=== PATIENT | female | born 1940 | race Caucasian/White ===

== ENCOUNTER → 2017-01-18 | Outpatient (CLI) | payer OTHER, BC ==
[~2017-01-18] MED LIST: CHOL100027 PO; CYAN100048; DENOINJ; DOCU-94 PO; EVER10TA PO; EXM25C PO; LANS15CA27 PO; METO25TA3 PO
== END | disposition home or self-care (01) ==
LOC: C.PATHSPEC 11:25
PROVIDERS: ATTEND Dentist Oral and Maxillofacial Pathology
DX: M87.9 Osteonecrosis, unspecified (principal)

== ENCOUNTER → 2017-04-19 | Outpatient (CLI) | payer OTHER, BC | END | disposition home or self-care (01) | LOC: C.PATH 15:05 | PROVIDERS: ATTEND Dentist Oral and Maxillofacial Pathology | DX: M87.88 Other osteonecrosis, other site (principal) ==

== ENCOUNTER → 2017-05-17 | Outpatient (CLI) | payer OTHER, BC ==
[~2017-05-17] MED LIST changes: +OPTIRAY 320 IV PRN
--- NOTE | 2017-05-17 14:20 | DIAGNOSTIC IMAGING REPORT ---
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 COMPARISON: PET/CT dated 08/24/2014 FINDINGS: Stable bony metastatic change. Lungs are clear. No significant hilar or mediastinal adenopathy . No significant pulmonary nodularity. IMPRESSION: 1. Stable sclerotic changes of the osseous structures suggesting old metastatic change. 2. No acute or interval process. Electronically signed by: Malachi Smith M.D. 05/17/2017 2:19 PM Dictated Date/Time: 05/17/2017 2:08 PM
--- NOTE | 2017-05-17 14:20 | DIAGNOSTIC IMAGING REPORT ---
ABDOMEN AND PELVIS CT WITH ORAL CONTRAST CT DOSE: 787.00 mGy.cm HISTORY: malignant neoplasm of female breast TECHNIQUE: Multiaxial CT images of the abdomen and pelvis were performed following the use of oral contrast. COMPARISON STUDY: PET CT 08/24/2014. FINDINGS: The lung bases are clear. No change in the scattered sclerotic lesions within the spine, sacrum, pelvis, proximal right femur consistent with metastatic foci. There appear to be a few scattered hypodense lesions within the liver which are new from the prior study. Dominant lesion within the right hepatic lobe measures 2.6 cm. The unenhanced spleen, adrenal glands, pancreas, and right kidney are unremarkable. Mild bilateral perinephric edema. Left peripelvic renal cysts are again noted. Multiple large calcified and noncalcified uterine fibroids are unchanged. No retroperitoneal lymphadenopathy. Cholelithiasis. Bladder is compressed by the large uterine calcified fibroid. Colonic diverticulosis. No bowel wall thickening or obstruction. Prior right hemicolectomy. IMPRESSION: 1. Interval development of a few hypodense lesions within the liver. These are technically indeterminate on this noncontrast study but are worrisome for metastatic foci. Follow-up contrast-enhanced liver MRI is recommended for confirmation. 2. No change in the scattered osteoblastic metastatic lesions. Electronically signed by: Thiago Ann M.D. 05/17/2017 2:19 PM Dictated Date/Time: 05/17/2017 2:09 PM
--- NOTE | 2017-05-17 17:06 | DIAGNOSTIC IMAGING REPORT ---
WHOLE-BODY NUCLEAR BONE SCAN CLINICAL HISTORY: Breast cancer. COMPARISON STUDY: CT scan of the chest, abdomen, and pelvis dated 05/17/2017. PET/CT dated 08/24/2014. TECHNIQUE: Three hours following the IV administration of 26.2 mCi of technetium 99m MDP, whole body nuclear bone scan was performed in the anterior and posterior projections. FINDINGS: Heterogeneous activity is identified in the sacrum. This is consistent with metastatic disease when correlated with the patient's recent abdominal CT. A lesion is also identified in the body of L1 comment likely within the left posterior lateral sixth rib. Typically degenerative uptake is identified in the shoulders, knees, risks, and feet. Intense activity along the right aspect of the thoracic spine corresponds to large marginal osteophytes when correlated with the recent chest CT. There is expected excreted activity within the renal collecting system. Intense activity within the pelvis some eccentric to the right may correspond to a large calcified fibroid. Intense nonspecific activity is also identified in the mandible. IMPRESSION: 1. There is abnormal activity identified within L1, the sacrum, and the right posterior lateral sixth rib typical in appearance for osseous metastatic disease. Sclerotic lesions are identified at these sites on the recent CT scans. 2. There is intense nonspecific activity identified in the mandible. This could represent metastatic disease, Paget's disease of bone, fibrous dysplasia, or could be related to periodontal disease. Clinical correlation will be essential. 3. Intense activity in the pelvis may be related to a large calcified fibroid seen by CT. 4. Foci of typically degenerative activity as above. Electronically signed by: Chidi Acosta M.D. 05/17/2017 5:04 PM Dictated Date/Time: 05/17/2017 4:57 PM
== END | disposition home or self-care (01) ==
LOC: C.CTS 11:56
PROVIDERS: ATTEND Internal Medicine Hematology & Oncology
DX: C50.919 Malignant neoplasm of unspecified site of unspecified female breast (principal)

== ENCOUNTER → 2017-06-04 | Outpatient (CLI) | payer OTHER, BC ==
[~2017-06-04] MED LIST changes: +GADOXETATE DISODIUM (NON-WT BASED PROCEDURE) IV PRN; -OPTIRAY 320 IV PRN
--- NOTE | 2017-06-04 13:40 | DIAGNOSTIC IMAGING REPORT ---
ABDOMEN COMBO CLINICAL HISTORY: 76 years-old Female presenting with BREAST CA, suspicious lesions in the liver noted on recent CT, MRI for further characterization. TECHNIQUE: Multisequence, multiplanar MR imaging of the abdomen was performed before and after the administration of 10 mL of Eovist intravenous contrast. COMPARISON: Correlation made to PET/CT from [address] of the abdomen and pelvis on 05/17/2017. FINDINGS: Lung bases: Lung bases clear. Mild cardiomegaly. No pericardial or pleural effusion. Liver: Normal morphology. Numerous T1 hypointense, T2 hyperintense, hypovascular liver lesions scattered throughout both lobes of the liver. These lesions do not retain contrast on the hepatobiliary phase. The largest largest index lesions enumerated below: -Segment 4B/5 lesion measures 21 mm (series 17 image 36) -Segment 3 lesion measures 11 mm (series 17 image 34) -Segment 2 lesion measures 14 mm (series 17 image 20) -Segment 8 lesion measures 14 mm (series 17 image 14 -Segment 6 lesion measures 17 mm (series 17 image 38) ( Patent hepatic vasculature. No evidence of hepatic steatosis. Biliary: No intrahepatic or extrahepatic biliary ductal dilatation. Cholelithiasis. Pancreas: Normal. Spleen: Loss of signal on in phase and diffusion weighted imaging indicative of iron overload. Adrenal glands: Normal. Kidneys and ureters: Few small T2 hyperintense well-defined lesions in the kidneys, most parapelvic in location, consistent with simple cysts. No hydronephrosis. Gastrointestinal tract: Normal. No bowel obstruction. Peritoneal cavity: No free fluid or intraperitoneal gas. Vasculature: Aorta and IVC patent and normal in caliber. Lymph nodes: No enlarged lymph nodes in the abdomen or pelvis. Pelvis: Partially visualized pelvis demonstrates an expanded uterus likely due to the presence of multiple large T2 hypointense fibroids. Abdominal wall: Normal. Musculoskeletal: Multifocal sites of T2 hyperintense enhancing lesions in the visualized vertebral bodies consistent with known metastatic disease. IMPRESSION: 1. Numerous hepatic lesions throughout both lobes of the liver consistent with metastatic disease. No lymphadenopathy. Redemonstration of known osseous metastatic disease. 2. Evidence of splenic iron overload. 3. Fibroid uterus. Electronically signed by: Rasta Houser 06/04/2017 1:39 PM Dictated Date/Time: 06/04/2017 1:25 PM
== END | disposition home or self-care (01) ==
LOC: C.MRI 11:51
PROVIDERS: ATTEND Internal Medicine Hematology & Oncology
DX: Z85.3 Personal history of malignant neoplasm of breast (principal); D25.9 Leiomyoma of uterus, unspecified

== ENCOUNTER → 2017-10-25 | Outpatient (CLI) | payer OTHER, BC ==
[~2017-10-25] MED LIST changes: -GADOXETATE DISODIUM (NON-WT BASED PROCEDURE) IV PRN; +OPTIRAY 320 IV PRN
--- NOTE | 2017-10-25 10:47 | DIAGNOSTIC IMAGING REPORT ---
(CHEST) THORAX WITHOUT CT DOSE: 997.31 mGy.cm HISTORY: Breast carcinoma BX CA DO WITHOUT IV CONTRAST HAD DIFF. BREATHING TECHNIQUE: Multiaxial CT images of the chest were performed without contrast. A dose lowering technique was utilized adhering to the principles of ALARA. COMPARISON: 05/17/2017 FINDINGS: Stable sclerotic changes of the osseous structures consistent with old in activity of metastatic change. The lungs are considered clear. No significant nodular or infiltrative pathology. The mediastinal and hilar regions are considered unremarkable. No significant hilar or mediastinal adenopathy. Axillary regions are unremarkable. IMPRESSION: No acute process of the chest. No change from the prior exam. The above report was generated using voice recognition software. It may contain grammatical, syntax or spelling errors. Electronically signed by: Malachi Smith M.D. 10/25/2017 10:46 AM Dictated Date/Time: 10/25/2017 10:42 AM
--- NOTE | 2017-10-25 11:00 | DIAGNOSTIC IMAGING REPORT ---
ABD/PELVIS ORAL CONT ONLY CLINICAL HISTORY: 77 years-old Female presenting with history of breast cancer, history of difficulty breathing with IV contrast, not premedicated. TECHNIQUE: Multidetector CT of the abdomen and pelvis was performed after the administration of oral contrast only. IV contrast: None. A dose lowering technique was used consistent with the principles of ALARA (as low as reasonably achievable). COMPARISON: 05/17/2017 and MR abdomen from 06/04/2017. CT DOSE (mGy.cm): The estimated cumulative dose is 997.31. FINDINGS: Rn Clinical Trials topogram: Calcified uterine fibroid noted. Lung bases: Minimal dependent changes likely atelectasis. Mitral annular calcification. Normal heart size. No pericardial or pleural effusion. Partially visualized postsurgical and/or posttreatment changes of the left breast. Liver: Ill-defined hypodensities in the liver consistent with known hepatic metastatic disease. This is not well the linear given the absence of intravenous contrast. Biliary: No gross biliary ductal dilatation allowing for noncontrast technique. Gallbladder contains gallstones. Pancreas: Normal noncontrast appearance. Spleen: Normal noncontrast appearance. Adrenal glands: Normal noncontrast appearance. Kidneys and ureters: Mild pelvocaliectasis bilaterally without evidence of ureteral dilatation or nonobstructing calculus or mass. Ureters normal. Bladder: Normal. Pelvic organs: Multiple lobular uterine fibroids, which are calcified varying degrees. The uterus is overall enlarged by the fibroids. No adnexal masses. Bowel: Oral contrast has transited to the sigmoid colon. No bowel obstruction. Limited diverticula in the distal descending colon and proximal sigmoid colon. Postsurgical changes of right hemicolectomy with patent ileocolic anastomosis. Peritoneal cavity: No free fluid or intraperitoneal gas. Lymph nodes: No gross lymphadenopathy allowing for noncontrast technique. Vasculature: Atherosclerosis of the normal caliber abdominal aorta. Abdominal wall: Normal. Musculoskeletal: Degenerative changes of the spine. Mixed sclerotic and lytic changes in several vertebral bodies and the sacrum consistent with known osseous metastatic disease. Similar changes noted in the right ischium, right pubis, and along the anterior intertrochanteric left femur (series 6 image 400), unchanged since April. Mild osteopenia. IMPRESSION: 1. Evaluation for progression or change in the hepatic metastases is limited without intravenous contrast. Given the patient's allergy to iodinated contrast, MR of the liver is recommended for further evaluation if this is of clinical concern. 2. Redemonstration of multifocal osseous metastatic disease. These have not significantly changed since prior CT. 3. Bilateral pelvocaliectasis without ureteral dilatation. This may suggest ureteropelvic junction obstruction. No commencing evidence of hydronephrosis. 4. Postsurgical changes of right hemicolectomy. Electronically signed by: Rasta Houser M.D. 10/25/2017 10:59 AM Dictated Date/Time: 10/25/2017 10:45 AM
== END | disposition home or self-care (01) ==
LOC: C.CTS 07:26
PROVIDERS: ATTEND Internal Medicine Hematology & Oncology
DX: Z85.3 Personal history of malignant neoplasm of breast (principal)

== ENCOUNTER → 2017-10-25 | Outpatient (CLI) | payer OTHER, BC ==
[~2017-10-25] MED LIST changes: -OPTIRAY 320 IV PRN
--- NOTE | 2017-10-25 12:02 | DIAGNOSTIC IMAGING REPORT ---
BONE SCAN WHOLE BODY CLINICAL HISTORY: 77 years-old Female presenting with Z85.3 breast cancer. TECHNIQUE: Planar anterior and posterior whole body imaging was performed 3 hours following the intravenous administration of radiotracer. Radiotracer: 25.5 mCi Tc-99m MDP. COMPARISON: 05/17/2017. FINDINGS: Radiotracer activity surrounding the bilateral knee joints consistent with a degenerative etiology. Persistent and slight interval increase in radiotracer uptake in the bilateral sacral ala, which correlates with site of metastatic disease on CT from 10/25/2017. Decreased radiotracer uptake in the L1 vertebral body, which is essentially equivalent to surrounding degenerative change in the lumbar spine. No radiotracer uptake is evident in the ribs. Focal radiotracer uptake at multiple adjacent levels along the right aspect of the posterior elements in the mid thoracic spine is unchanged from prior and most consistent with degenerative change. Persistent radiotracer activity in the mandible. Comparing to most recent CT imaging of the mandible from 10/16/2017, heterogeneous lytic and sclerotic changes evident in the mandible at this site. The appearance suggests osteonecrosis. IMPRESSION: 1. Persistent radiotracer uptake in the sacrum which correlates to the site of metastatic disease on contemporaneous CT scan. 2. Decreased radiotracer uptake in the L1 vertebral body, which suggests treatment response. 3. No new sites of osseous metastasis. 4. Focal activity in the mandible is most consistent with osteonecrosis correlating to CT of the mandible from 10/16/2017. Electronically signed by: Rasta Houser M.D. 10/25/2017 12:01 PM Dictated Date/Time: 10/25/2017 11:53 AM
== END | disposition home or self-care (01) ==
LOC: C.NUCL 07:25
PROVIDERS: ATTEND Internal Medicine Hematology & Oncology
DX: Z85.3 Personal history of malignant neoplasm of breast (principal)

== ENCOUNTER → 2017-10-30 | Outpatient (CLI) | payer OTHER, BC | END | disposition home or self-care (01) | LOC: C.LABSPEC 13:37 | PROVIDERS: ATTEND Dentist Oral and Maxillofacial Pathology | DX: M87.80 Other osteonecrosis, unspecified bone (principal) ==

== ENCOUNTER → 2018-03-27 | Outpatient (CLI) | payer OTHER, BC ==
--- NOTE | 2018-03-27 14:22 | DIAGNOSTIC IMAGING REPORT ---
BONE SCAN WHOLE BODY CLINICAL HISTORY: Metastatic breast cancer. COMPARISON STUDY: Total body bone scan and CT of the chest, abdomen and pelvis October 25, 2017. TECHNIQUE: 26.5 mCi of technetium 99m MDP was injected IV at 10:45 AM on March 27, 2018. 3 hours following injection, whole body imaging was performed in the anterior and posterior projections. FINDINGS: Expected soft tissue and renal activity is present. Uptake within the shoulders, sternoclavicular joints, wrists, knees and left foot is likely degenerative. This was present on previous exam. Uptake projecting over the perineum is due to urine contamination. Mandibular radiotracer uptake shown on prior exam has nearly completely resolved. Sacral uptake has not significantly changed. A small focus of radiotracer within the proximal diaphysis of the right femur is new since previous exam. Mild radiotracer uptake within the L1 vertebral body has not significantly changed. IMPRESSION: 1. Interval development of a small focus of mild radiotracer uptake within the proximal shaft of the right femur consistent with a skeletal metastasis. 2. No significant change in radiotracer uptake within the L1 vertebral body and sacral metastases. 3. Near complete resolution of mandibular radiotracer uptake. Electronically signed by: Vasu Mills M.D. 03/27/2018 2:21 PM Dictated Date/Time: 03/27/2018 2:15 PM
== END | disposition home or self-care (01) ==
LOC: C.NUCL 10:33
PROVIDERS: ATTEND Internal Medicine Hematology & Oncology
DX: C50.919 Malignant neoplasm of unspecified site of unspecified female breast (principal); C79.51 Secondary malignant neoplasm of bone

== ENCOUNTER → 2018-03-28 | Outpatient (CLI) | payer OTHER, BC ==
--- NOTE | 2018-03-28 14:26 | DIAGNOSTIC IMAGING REPORT ---
(CHEST) THORAX WITHOUT CT DOSE: HISTORY: Breast carcinoma CA TECHNIQUE: Multiaxial CT images of the chest were performed without contrast. A dose lowering technique was utilized adhering to the principles of ALARA. COMPARISON: 10/25/2017 FINDINGS: The lungs are clear. The mediastinal vascular structures are within normal limits. No mediastinal or hilar lymphadenopathy. No pleural effusion or pneumothorax. No significant adenopathy. Stable sclerotic changes of the osseous structures. Possible developing nodularity of the liver. Gallstones. IMPRESSION: No acute process. Possible developing nodularity of the liver. Gallstones. The above report was generated using voice recognition software. It may contain grammatical, syntax or spelling errors. Electronically signed by: Malachi Smith M.D. 03/28/2018 2:25 PM Dictated Date/Time: 03/28/2018 2:20 PM
--- NOTE | 2018-03-28 14:32 | DIAGNOSTIC IMAGING REPORT ---
ABDOMEN AND PELVIS CT WITH ORAL CONTRAST CT DOSE: 1525.50 mGy.cm HISTORY: Follow-up study in a patient with metastatic breast cancer CA TECHNIQUE: Multiaxial CT images of the abdomen and pelvis were performed following the use of oral contrast. A dose lowering technique was utilized adhering to the principles of ALARA. COMPARISON STUDY: CT abdomen and pelvis 10/25/2017, bone scan 03/27/2018. FINDINGS: Lung bases are generally clear. There is no pneumatosis or pneumoperitoneum identified. Imaged inferior cardiac chambers are unremarkable. Coronary arterial calcifications noted. Evaluation of the solid abdominal organs is limited without the use of IV contrast. Heterogeneous appearance of the liver with multiple ill-defined low attenuating lesions. 1.9 cm low attenuating lesion of the posterior right hepatic lobe appears unchanged. 3.0 cm lesion of the anterior right hepatic lobe is unchanged. 8 mm left hepatic lobe lesion on image 17 series 3 also appears stable. Spleen, pancreas and adrenal glands are unremarkable. Cholelithiasis without CT evidence of acute cholecystitis. Mild nonspecific bilateral perinephric stranding. Mild bilateral pelvic caliectasis without ryan hydronephrosis. The ureters appear normal in caliber. Bladder is unremarkable. Large fibroid uterus with multiple calcified fibroids. Uterus overall measures over 15 cm in length. No adnexal mass lesions identified. Moderate atherosclerosis of the aorta. No bulky adenopathy. No bowel obstruction or focal bowel wall thickening identified. Colonic diverticulosis without CT evidence of acute diverticulitis. Postoperative changes from prior right hemicolectomy with ileocolic anastomosis. Soft tissues are unremarkable. Mixed lytic and sclerotic metastasis again noted within the sacrum and within several vertebral bodies, seen most pronounced at T11, L1 and L5. 10 mm sclerotic lesion of the proximal left femur appears unchanged. No pathologic fractures identified. IMPRESSION: 1. Limited study without the use of IV contrast. No evidence of progressive or new metastatic disease within the abdomen or pelvis. 2. Unchanged skeletal metastasis with stable size and appearance of the heterogeneous ill-defined low attenuating metastatic hepatic lesions. 3. Enlarged fibroid uterus. 4. Cholelithiasis without CT evidence of acute cholecystitis. 5. Colonic diverticulosis without diverticulitis. Electronically signed by: Sarath Begum M.D. 03/28/2018 2:31 PM Dictated Date/Time: 03/28/2018 2:20 PM
== END | disposition home or self-care (01) ==
LOC: C.CTS 11:54
PROVIDERS: ATTEND Internal Medicine Hematology & Oncology
DX: Z85.3 Personal history of malignant neoplasm of breast (principal); K80.20 Calculus of gallbladder without cholecystitis without obstruction; K57.90 Diverticulosis of intestine, part unspecified, without perforation or abscess without bleeding; D25.9 Leiomyoma of uterus, unspecified; I70.0 Atherosclerosis of aorta

== ENCOUNTER → 2018-06-25 | Outpatient (CLI) | payer OTHER, BC ==
--- NOTE | 2018-06-25 12:38 | DIAGNOSTIC IMAGING REPORT ---
(CHEST) THORAX WITHOUT CT DOSE: 1091.22 mGy.cm HISTORY: Breast carcinoma X TECHNIQUE: Multiaxial CT images of the chest were performed without contrast. A dose lowering technique was utilized adhering to the principles of ALARA. COMPARISON: 03/28/2018 FINDINGS: Mild fibrotic change medial aspect right base. This potentially is post therapeutic. No significant pulmonary nodularity. Hilar and mediastinal regions are unremarkable. Slight hepatic in homogeneity noted within limitations of an unenhanced scan. Bony metastatic change stable. IMPRESSION: No acute process. Stable chronic changes as noted. Probable stable hepatic metastatic change as well as osseous lesions. Fibrotic change medial right base most likely posttherapeutic The above report was generated using voice recognition software. It may contain grammatical, syntax or spelling errors. Electronically signed by: Malachi Smith M.D. 06/25/2018 12:36 PM Dictated Date/Time: 06/25/2018 12:31 PM
--- NOTE | 2018-06-25 12:44 | DIAGNOSTIC IMAGING REPORT ---
CT SCAN OF THE ABDOMEN AND PELVIS WITHOUT CONTRAST CLINICAL HISTORY: Metastatic breast carcinoma COMPARISON STUDY: 03/28/2018 , MRI performed May 2017 TECHNIQUE: CT scan of the abdomen and pelvis was performed from the lung bases to the proximal femurs. Images are reviewed in the axial, sagittal, and coronal planes. IV contrast was not administered for this examination. A dose lowering technique was utilized adhering to the principles of ALARA. CT DOSE: FINDINGS: Lower chest: There are nodular opacities at the right lung base. As there is no abnormality on the prior study performed just 3 months prior these likely are atelectatic or inflammatory. Short-term follow-up is recommended given the history of a primary malignancy. Liver: There are multiple subtle space-occupying hepatic masses. The findings are consistent with metastatic disease. Evaluation for disease progression is difficult given the limitations of a noncontrast study. Gallbladder: Cholelithiasis Spleen: Normal in size and attenuation. Pancreas: Unremarkable. Adrenal glands: Unremarkable. Kidneys: There are left renal parapelvic cysts. No renal ureteral or bladder calculi are visualized Bowel: There are no transition zones indicate bowel obstruction. There is no acute diverticulitis. There are postsurgical changes of a right hemicolectomy. Peritoneum: There is no intraperitoneal free air or abdominal ascites. Vasculature: The abdominal aorta is normal in course and caliber. Adenopathy: None. Pelvic viscera: There are multiple uterine fibroids including a 10 cm calcified fibroid. Skeletal structures: There is an abnormal trabecular pattern involving multiple bones consistent with skeletal metastasis. The findings remain similar to the prior study. IMPRESSION: 1. Stable skeletal metastasis. 2. Enlarged fibroid uterus 3. No evidence of pathologic adenopathy within the abdomen or pelvis. 4. Cholelithiasis 5. Multiple hypodense hepatic lesions consistent with metastatic disease. Evaluation for disease progression is difficult given the limitations of a noncontrast study. 6. Nodular pulmonary airspace opacities within the right lower lobe. An infectious or atelectatic etiology is favored. This should be reevaluated on subsequent studies. Electronically signed by: Td Irvin M.D. 06/25/2018 12:43 PM Dictated Date/Time: 06/25/2018 12:35 PM
--- NOTE | 2018-06-25 13:51 | DIAGNOSTIC IMAGING REPORT ---
WHOLE-BODY NUCLEAR BONE SCAN CLINICAL HISTORY: Breast cancer. COMPARISON STUDY: Nuclear bone scan dated 03/27/2018. CT scan of the chest, abdomen, and pelvis dated 06/25/2018. TECHNIQUE: Three hours following the IV administration of 26.14 mCi of technetium 99m MDP, whole body nuclear bone scan was performed in the anterior and posterior projections. FINDINGS: There is extensive abnormal activity seen throughout the bony pelvis, greatest involving the sacrum. Focal abnormal activity within the proximal right femoral shaft is also noted. This is unchanged from 03/27/2018 and consistent with the patient's known multifocal osseous metastatic disease. Some of the pelvic activity is also likely related to large calcified uterine fibroids. Calvarial/facial bone activity may also represent metastatic disease. Extensive activity throughout the spine is similar to previous. This likely represents both metastatic disease and degenerative change. Typically degenerative uptake is identified in the shoulders, sternoclavicular joints, wrists, hips, knees, and ankles. There is expected excreted activity within the renal collecting system and bladder. IMPRESSION: 1. Findings of multifocal osseous metastatic disease are similar in distribution to the 03/27/2018 examination. The degree of activity is unchanged to slightly increased from previous. 2. No new metastatic lesions are clearly identified. Electronically signed by: Chidi Acosta M.D. 06/25/2018 1:50 PM Dictated Date/Time: 06/25/2018 1:34 PM
== END | disposition home or self-care (01) ==
LOC: C.CTS 09:44
PROVIDERS: ATTEND Internal Medicine Hematology & Oncology
DX: C50.919 Malignant neoplasm of unspecified site of unspecified female breast (principal)

== ENCOUNTER 2022-09-06 13:15 | Inpatient (IN) ==
[2022-09-06] MEDS ORDERED: SODIUM CHLORIDE 0.9% 500 ML IV SCH (13:45)
--- NOTE | 2022-09-06 13:48 | Emergency Department Note ---
Impression & Plan Weakness, Acute UTI (urinary tract infection), ZAIN (acute kidney injury) ED Provider Note NAME: BETZAIDA ARGUETA AGE: 81 SEX: F : 1940 ARRIVES VIA: Walk-In INFORMANT: Patient, ED PROVIDER(S): Ambrosio Young DO CHIEF COMPLAINT: Weakness HPI: The patient is a 81-year-old female who has a history of breast cancer which is metastatic to the liver who presented to the emergency department for an evaluation of weakness. The patient is from the [facility]. She sees Dr. Stovall for oncology. She is been having problems for many years but started to notice worsening symptoms including worsening weakness numbness and swelling in both legs. Her daughter presented to be with her in the emergency department and states that she has been having significant trouble ambulating. The patient was told to come to the emergency department today by Dr. Stovall for admission. She notices no chest pain. She has had no nausea or vomiting. She complains of no shortness of breath. She has had no changes to her medications. She does take blood thinners for history of DVT. ROS: See above HPI for pertinent positives & negatives. A total of 10 systems reviewed and were otherwise negative. PAST MEDICAL HISTORY: See Below PAST SURGICAL HISTORY: See Below FAMILY HISTORY: See Below SOCIAL HISTORY: See Below HOME MEDICATIONS: See Below ALLERGIES: See Below VITALS: See Below PHYSICAL EXAMINATION: GENERAL: Patient is awake alert in no acute distress patient is resting comfortably and showing no signs of anxiety EYES: The conjunctivae are clear. The pupils are round and reactive. EARS, NOSE, MOUTH AND THROAT: The nose is without any evidence of any deformity. Mucous membranes are moist. Tongue is midline. NECK: The neck is nontender and supple. RESPIRATORY: Normal respiratory effort is noted there is no evidence of wheezing rhonchi or rales CARDIOVASCULAR: Regular rate and rhythm noted there no murmurs rubs or gallops normal S1 normal S2. GASTROINTESTINAL: The abdomen is soft. Abdomen is nontender. MUSCULOSKELETAL/EXTREMITIES: There is no evidence of gross deformity full range of motion is noted in the hips and shoulders. SKIN: Skin is warm and dry. Pedal edema was noted bilaterally. NEUROLOGIC: Patient is awake alert and oriented x3 strength was symmetric but diminished. MEDICAL DECISION MAKING: The patient is a 81-year-old female who presented to the emergency department for an evaluation of generalized weakness. The patient was noted to have lower extremity swelling. The patient was sent to the emergency department by her on cologist for further evaluation as well as possible inpatient management. The patient was treated with IV fluids and IV antibiotics for presumed urinary tract infection. I discussed patient's laboratory and radiographic studies with her. I also discussed her case with the on-call [facility] hospitalist. They have agreed to evaluate the patient in the emergency department for further managem ent and disposition. Triage Nursing notes reviewed. Prior medical records reviewed Vital Signs: reviewed and remarkable for no significant abnormalities Differential diagnosis: Infection, dehydration, metabolic abnormality, hypo/hyperglycemia, electrolyte disturbance, anemia, hypoxia, cardiac sources, intracerebral event, toxicologic, neurologic, as well as other pathologies. ER treatment provided: See below Diagnostics interpreted by me: ECG: EKG was obtained in the emergency department. My interpretation is atrial fibrillation at 75 bpm. There was no PVCs noted. Nonspecific ST segment depression were noted in the high lateral leads with Q waves in the inferior leads. No previous tracing was available. Cardiac Monitoring: An order was placed for continuous cardiac monitoring. The monitor shows a rate of 85 bpm with sinus rhythm. Laboratory studies: As stated above and show below. Imaging studies: See below Consultation(s): I discussed this case with Dr. Pineda who is on-call for the [facility] hospitalist group. 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 Cataracts, bilateral Fibromyalgia oral chemo meds- in legs, hands mostly History of bone cancer ankles and wrist History of breast cancer left side Hypertension Liver cancer 1 1/2 yrs ago dx- has had 6 mos chemo- now to be bx to dx which kind of cancer for further treatment Sensorineural hearing loss of both ears Poorer WRS in right ear Surgical History History of appendectomy History of cataract surgery bilateral eyes History of colon surgery precancerous mass removal History of mandibular surgery titanium plate with screws lower jaw due to brittle bone History of modified radical mastectomy of both breasts Family History Mother Allergies Other Colorectal cancer Esophageal cancer Lung cancer No family history of adverse response to anesthesia No family history of bleeding disorder Social History Smoking Status: Never smoker Hx Alcohol Use: Yes (thai only- 1 drink) Hx Substance Use: No Preferred Language: Serbian Beliefs That Will Affect Care: None Current Living Situation: Alone Feels Safe at Home: Yes Assistive Devices: None and Cane Allergies Allergies Allergy/AdvReac Type Severity Reaction Status Date / Time Iodinated Contrast Media Allergy Severe CAN NOT Verified 09/06/22 15:49 BREATH adhesive Allergy Intermediate BLISTERS Verified 09/06/22 15:49 latex AdvReac Intermediate skin rash Verified 09/06/22 15:49 Home Meds Home Medications Medication Instructions Recorded Confirmed apixaban 2.5 mg tablet (Eliquis) 2.5 mg PO BID 07/05/22 09/06/22 fulvestrant 250 mg/5 mL 500 mg IM Q14D 07/05/22 09/06/22 intramuscular syringe (Faslodex) loratadine 10 mg tablet (Claritin) 10 mg PO DAILY 07/05/22 09/06/22 metoprolol succinate 25 mg 25 mg PO DAILY 07/05/22 09/06/22 tablet,extended release 24 hr prednisone 5 mg tablet 5 mg PO DAILY 07/05/22 09/06/22 spironolactone 50 mg tablet 50 mg PO DAILY 07/05/22 09/06/22 Bacillus coagulans 1 billion cell 1 cell PO DAILY 09/06/22 09/06/22 capsule pembrolizumab 25 mg/mL intravenous 0 mg IV DIRECTED 09/06/22 09/06/22 solution (Keytruda) Results & Data (ED) Vital Signs Vital Signs - 24 hr 09/06/22 13:22 09/06/22 14:15 09/06/22 13:53 Temperature 36.4 C L Temperature Source Temporal Artery Scan Pulse Rate 76 72 Pulse Rate from SpO2 Sensor Respiratory Rate 18 16 Respiratory Effort / Characteristics Non-Labored Respiratory Depth Normal Blood Pressure 129/60 Blood Pressure Mean 83 Pulse Oximetry 95 97 Oxygen Delivery Method Room Air Room Air Sepsis Recent Fever Within 48 Hours No Sepsis New/Unexplained Change in Mental Status No Sepsis Action Taken by Nursing No Action Required 09/06/22 14:00 09/06/22 14:04 09/06/22 14:04 Temperature Temperature Source Pulse Rate 74 73 Pulse Rate from SpO2 Sensor 74 Respiratory Rate 24 18 Respiratory Effort / Characteristics Respiratory Depth Blood Pressure 110/62 Blood Pressure Mean 78 Pulse Oximetry 99 Oxygen Delivery Method Sepsis Recent Fever Within 48 Hours Sepsis New/Unexplained Change in Mental Status Sepsis Action Taken by Nursing 09/06/22 14:30 09/06/22 14:30 09/06/22 15:00 Temperature Temperature Source Pulse Rate 68 Pulse Rate from SpO2 Sensor 69 Respiratory Rate 15 Respiratory Effort / Characteristics Respiratory Depth Blood Pressure 119/72 123/77 Blood Pressure Mean 87 92 Pulse Oximetry 97 Oxygen Delivery Method Sepsis Recent Fever Within 48 Hours Sepsis New/Unexplained Change in Mental Status Sepsis Action Taken by Nursing 09/06/22 15:00 09/06/22 15:30 09/06/22 15:30 Temperature Temperature Source Pulse Rate 69 70 Pulse Rate from SpO2 Sensor 66 72 Respiratory Rate 17 15 Respiratory Effort / Characteristics Respiratory Depth Blood Pressure 129/75 Blood Pressure Mean 93 Pulse Oximetry 96 97 Oxygen Delivery Method Sepsis Recent Fever Within 48 Hours Sepsis New/Unexplained Change in Mental Status Sepsis Action Taken by Nursing 09/06/22 16:00 09/06/22 16:00 09/06/22 16:30 Temperature Temperature Source Pulse Rate 72 Pulse Rate from SpO2 Sensor 75 Respiratory Rate 22 Respiratory Effort / Characteristics Respiratory Depth Blood Pressure 135/74 135/77 Blood Pressure Mean 94 96 Pulse Oximetry 97 Oxygen Delivery Method Sepsis Recent Fever Within 48 Hours Sepsis New/Unexplained Change in Mental Status Sepsis Action Taken by Nursing 09/06/22 16:30 09/06/22 17:00 09/06/22 17:00 Temperature Temperature Source Pulse Rate 69 70 Pulse Rate from SpO2 Sensor 70 69 Respiratory Rate 20 18 Respiratory Effort / Characteristics Respiratory Depth Blood Pressure 137/78 Blood Pressure Mean 97 Pulse Oximetry 98 98 Oxygen Delivery Method Sepsis Recent Fever Within 48 Hours Sepsis New/Unexplained Change in Mental Status Sepsis Action Taken by Assisted Medications Current Medication List: was personally reviewed by me Laboratory Data Attestation: I reviewed the patient's lab results. Result diagrams: 09/06/22 14:05 09/06/22 14:05 Lab Results 09/06/22 09/06/22 09/06/22 Range/Units 14:05 14:05 14:05 WBC 18.48 H (4.8-10.8) K/ul RBC 4.60 (3.93-5.22) M/uL Hgb 13.5 (12.0-16.0) g/dl Hct 38.4 (34.1-44.9) % MCV 83.5 (80.0-100.0) fL MCH 29.3 (25.0-34.0) pg MCHC 35.2 (32.0-36.0) g/dL RDW Std Deviation 48.9 H (36.4-46.3) fL RDW Coeff of Tj 20.4 H (11.5-14.5) % Plt Count 344 (130-400) K/uL MPV 10.1 (9.4-12.3) fL Immature Gran % (Auto) 2.4 % Neut % (Auto) 80.8 % Lymph % (Auto) 8.5 % Clare % (Auto) 8.1 % Eos % (Auto) 0.0 % Baso % (Auto) 0.2 % Neut # (Auto) 14.93 H (1.4-6.5) K/uL Lymph # (Auto) 1.57 (1.2-3.4) K/uL Clare # (Auto) 1.50 H (0.24-0.82) K/uL Eos # (Auto) 0.00 (0-0.50) K/uL Baso # (Auto) 0.04 (0-0.2) K/uL Immature Gran # (Auto) 0.44 H (0.00-0.02) K/uL Absolute Nucleated RBC 0.04 H (0-0) K/uL Nucleated RBC % (auto) 0.2 % Polychromasia 1+ Anisocytosis Present Echinocytes 3+ PT 12.8 H (9.0-12.0) Seconds INR 1.2 H (0.9-1.1) APTT 24.9 (21.0-31.0) Seconds PTT Ratio 0.9 Sodium 133 L (136-145) mmol/L Potassium 4.1 (3.5-5.1) mmol/L Chloride 95 L (98-107) mmol/L Carbon Dioxide 27 (21-32) mmol/L Anion Gap 11 (3-11) BUN 29 H (6-23) mg/dl Creatinine 1.28 H (0.6-1.2) mg/dl Est Cr Clr Drug Dosing 34.5 ml/min Est GFR ( Amer) 46.0 ml/min Est GFR (Non-Af Amer) 39.7 ml/min BUN/Creatinine Ratio 22.7 H (10-20) Glucose 152 H (70-99(Fasting)) mg/dl Calcium 9.1 (8.5-10.1) mg/dl Magnesium 2.0 (1.7-2.4) mg/dl Total Bilirubin 1.7 H (0.2-1.0) mg/dl AST 66 H (13-39) U/L ALT 61 H (7-52) U/L Alkaline Phosphatase 472 H (34-104) U/L Total Creatine Kinase 20 L (26-192) U/L Troponin I High Sens 24.9 H (0-14) pg/ml Total Protein 6.5 (6.0-8.3) gm/dl Albumin 3.3 L (3.4-5.0) gm/dl Globulin 3.2 (2.5-4.0) gm/dl Albumin/Globulin Ratio 1.0 (0.9-2) TSH (0.300-4.500) uIu/ml Urine Color Urine Appearance (Clear) Urine pH (4.5-7.5) Ur Specific [place] (1.000-1.030) Urine Protein (Negative) Urine Glucose (UA) (Negative) Urine Ketones (Negative) Urine Blood (Negative) Urine Nitrite (Negative) Urine Bilirubin (Negative) Urine Urobilinogen (Negative) Ur Leukocyte Esterase (Negative) Urine WBC (Auto) (0-5) /hpf Urine RBC (Auto) (0-4) /hpf U Hyaline Cast (Auto) (0-5) /lpf U Epithel Cells (Auto) (0-5) /lpf Urine Bacteria (Auto) (Negative) SARS-CoV-2, RNA, NAAT (NEGATIVE) 09/06/22 09/06/22 09/06/22 Range/Units 14:05 14:05 16:27 WBC (4.8-10.8) K/ul RBC (3.93-5.22) M/uL Hgb (12.0-16.0) g/dl Hct (34.1-44.9) % MCV (80.0-100.0) fL MCH (25.0-34.0) pg MCHC (32.0-36.0) g/dL RDW Std Deviation (36.4-46.3) fL RDW Coeff of Tj (11.5-14.5) % Plt Count (130-400) K/uL MPV (9.4-12.3) fL Immature Gran % (Auto) % Neut % (Auto) % Lymph % (Auto) % Clare % (Auto) % Eos % (Auto) % Baso % (Auto) % Neut # (Auto) (1.4-6.5) K/uL Lymph # (Auto) (1.2-3.4) K/uL Clare # (Auto) (0.24-0.82) K/uL Eos # (Auto) (0-0.50) K/uL Baso # (Auto) (0-0.2) K/uL Immature Gran # (Auto) (0.00-0.02) K/uL Absolute Nucleated RBC (0-0) K/uL Nucleated RBC % (auto) % Polychromasia Anisocytosis Echinocytes PT (9.0-12.0) Seconds INR (0.9-1.1) APTT (21.0-31.0) Seconds PTT Ratio Sodium (136-145) mmol/L Potassium (3.5-5.1) mmol/L Chloride (98-107) mmol/L Carbon Dioxide (21-32) mmol/L Anion Gap (3-11) BUN (6-23) mg/dl Creatinine (0.6-1.2) mg/dl Est Cr Clr Drug Dosing ml/min Est GFR ( Amer) ml/min Est GFR (Non-Af Amer) ml/min BUN/Creatinine Ratio (10-20) Glucose (70-99(Fasting)) mg/dl Calcium (8.5-10.1) mg/dl Magnesium (1.7-2.4) mg/dl Total Bilirubin (0.2-1.0) mg/dl AST (13-39) U/L ALT (7-52) U/L Alkaline Phosphatase (34-104) U/L Total Creatine Kinase (26-192) U/L Troponin I High Sens (0-14) pg/ml Total Protein (6.0-8.3) gm/dl Albumin (3.4-5.0) gm/dl Globulin (2.5-4.0) gm/dl Albumin/Globulin Ratio (0.9-2) TSH 0.936 (0.300-4.500) uIu/ml Urine Color Yellow Urine Appearance Cloudy A (Clear) Urine pH 6.0 (4.5-7.5) Ur Specific [place] 1.009 (1.000-1.030) Urine Protein Negative (Negative) Urine Glucose (UA) Negative (Negative) Urine Ketones Negative (Negative) Urine Blood Negative (Negative) Urine Nitrite Negative (Negative) Urine Bilirubin Negative (Negative) Urine Urobilinogen Negative (Negative) Ur Leukocyte Esterase 2+ H (Negative) Urine WBC (Auto) 10-30 H (0-5) /hpf Urine RBC (Auto) 0-4 (0-4) /hpf U Hyaline Cast (Auto) 1-5 (0-5) /lpf U Epithel Cells (Auto) >30 H (0-5) /lpf Urine Bacteria (Auto) Negative (Negative) SARS-CoV-2, RNA, NAAT NEGATIVE (NEGATIVE) Administered Medications Discontinued Medications Sodium Chloride (Nss) 500 mls @ 999 mls/hr IV .Q31M JORGE Stop: 09/06/22 14:15 Last Infusion: 09/06/22 20:34 Dose: 0 mls/hr Documented By: Admin: 09/06/22 14:47 Dose: 999 mls/hr Documented By: VIRAL Pantoprazole Sodium 40 mg/ (Syringe) 10 mls @ 5 mls/min IV NOW ONE Stop: 09/06/22 17:16 Last Admin: 09/06/22 18:48 Dose: 5 mls/min Documented By: JES Ceftriaxone Sodium (Rocephin) 2,000 mg in 70 mls @ 140 mls/hr IV NOW STA Stop: 09/06/22 17:38 Last Infusion: 09/06/22 20:33 Dose: 0 mls/hr Documented By: Admin: 09/06/22 18:48 Dose: 140 mls/hr Documented By: JES Imaging Data Radiologist's Impression: Chest X-Ray 09/06/22 13:42 XR chest 1V portable CLINICAL HISTORY: weakness TECHNIQUE: Single frontal radiograph of the chest was obtained. Comparison: Comparison is made to CT chest 11/30/2020 FINDINGS: No lines and tubes are seen. Calcified aortic knob is seen. The lungs are clear. Trace right pleural effusion is seen. IMPRESSION: There is a trace right pleural effusion. Otherwise no acute abnormalities are seen. ACT 112: Negative or not required by law. Electronically signed by: Jack Sharma M.D. 09/06/2022 2:17 PM Discharge Plan Visit Data Chief Complaint: Weakness Stated Complaint: WEAKNESS ED Provider: Ambrosio Young Discharge Problem: Weakness, Acute UTI (urinary tract infection), ZAIN (acute kidney injury) Patient Disposition: Admitted As Inpatient Discharge Instructions Interventions: ED Discharge Assessment Last Done: 09/06/22 20:06
--- NOTE | 2022-09-06 14:18 | XRay Report ---
XR chest 1V portable CLINICAL HISTORY: weakness TECHNIQUE: Single frontal radiograph of the chest was obtained. Comparison: Comparison is made to CT chest 11/30/2020 FINDINGS: No lines and tubes are seen. Calcified aortic knob is seen. The lungs are clear. Trace right pleural effusion is seen. IMPRESSION: There is a trace right pleural effusion. Otherwise no acute abnormalities are seen. ACT 112: Negative or not required by law. Electronically signed by: Jack Sharma M.D. 09/06/2022 2:17 PM
[2022-09-06 14:30] LABS: Basophils # (auto) 0.04 K/uL (0-0.2); Basophils % (auto) 0.2 %; Hematocrit (blood only) 38.4 % (34.1-44.9); Hemoglobin 13.5 g/dl (12.0-16.0); Immature Granulocytes # (auto) 0.44 K/uL (0.00-0.02); Immature Granulocytes % (auto) 2.4 %; Lymphocytes # (auto) 1.57 K/uL (1.2-3.4); Lymphocytes % (auto) 8.5 %; Mean Corpuscular Hemoglobin 29.3 pg (25.0-34.0); Mean Corpuscular Hgb Conc 35.2 g/dL (32.0-36.0); Mean Corpuscular Volume 83.5 fL (80.0-100.0); Mean Platelet Volume 10.1 fL (9.4-12.3); Monocytes % (auto) 8.1 %; Neutrophils # (auto) 14.93 K/uL (1.4-6.5); Neutrophils % (auto) 80.8 %; Nucleated RBC # (auto) 0.04 K/uL (0-0); Nucleated RBC % (auto) 0.2 %; Platelet Count 344 K/uL (130-400); RDW Coefficient of Variation 20.4 % (11.5-14.5); RDW Standard Deviation 48.9 fL (36.4-46.3); White Blood Count 18.48 K/ul (4.8-10.8)
[2022-09-06 14:42] LABS: INR 1.2 (0.9-1.1); Partial Thromboplastin Ratio 0.9; Partial Thromboplastin Time 24.9 Seconds (21.0-31.0); Prothrombin Time 12.8 Seconds (9.0-12.0)
--- NOTE | 2022-09-06 14:45 | Electrocardiogram Report ---
Test Reason : Blood Pressure : / mmHG Vent. Rate : 075 BPM Atrial Rate : 043 BPM P-R Int : 000 ms QRS Dur : 078 ms QT Int : 408 ms P-R-T Axes : 000 034 024 degrees QTc Int : 455 ms Atrial fibrillation with a competing junctional pacemaker Inferior infarct , age undetermined Poor R wave progression, consider anterior CT vs. lead placement vs. LVH Abnormal ECG No previous ECGs available Confirmed by Ambrosio Melendrez ([id number]) on 09/06/2022 2:45:10 PM Referred By: Frank Stovall Confirmed By:Ambrosio Melendrez
[2022-09-06 14:55] LABS: Troponin I High Sensitivity 24.9 pg/ml (0-14)
[2022-09-06 14:56] LABS: Albumin Level 3.3 gm/dl (3.4-5.0); BUN Creatinine Ratio 22.7 (10-20); Bilirubin,Total 1.7 mg/dl (0.2-1.0); Calcium 9.1 mg/dl (8.5-10.1); Creatinine Clr Calc Pharmacy 34.5 ml/min; Est GFR (Non-African American) 39.7 ml/min; Globulin 3.2 gm/dl (2.5-4.0); Potassium 4.1 mmol/L (3.5-5.1); Total Protein 6.5 gm/dl (6.0-8.3)
[2022-09-06 15:08] LABS: Anisocytosis Present; Echinocytes 3+; Polychromasia 1+
--- NOTE | 2022-09-06 16:35 | History & Physical Report ---
Date of Service September 06, 2022 Assessment & Plan (1) Weakness: Plan: Acute on chronic progressive weakness Multifactorial, suspect 2/2 poor PO Intake + metastatic cancer progression Completing infectious work-up including blood cultures, UA given acute sudden worsening and difficulty urinating Differential does include progressive metastatic cancer Metastatic breast cancer, mets to liver Was on tamoxifen/Femara/capecitibine until 2013 with progressive bony disease -Ettore/exemestane until 2016 with progressive disease to liver Xgeva stopped 2015 due to osteonecrosis Ibrance/Faslodex until 12/15 and was noted to have progressive liver disease 6 months of Taxol resulting in significant neuropathy and gait instability - Keytruda was given yesterday with fulvestrant, next due end of month. Pt reports other than these she Patient last received chemo approximately 6 months ago, she reports she absolutely does not want more chemo due to the side effects and feels it is no longer helping her. Had considered a port to help with blood draws, but expresses that she does not want any further chemotherapy. 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 No chest pain, chest pressure, shortness of breath, lightheadedness, dizziness, fever, chills, sweats. Endorses progressive weakness and difficulty ambulating. Symptoms have been progressive for several years, but are acutely worsening and associated with lower extremity increasing weakness. On admission has a leukocytosis to 18 in the setting of prednisone use, acutely elevated creatinine from a normal baseline up to 1.28, mild chronic transaminitis, and a high-sensitivity troponin of 24.9. COVID testing is negative Patient seen at the bedside. Reports that she has felt progressively weak for couple of months, but suddenly felt much more weak today. She has had difficulty peeing for about 2 days, but is not having any dysuria. No fever, chills, sweats. Just is feeling so weak that she tried to get up to pee and started to slump to the ground. Denies any recent falls, has not lost consciousness or hit her head. Reports she is undergone a great deal of chemotherapy, and Emily does not want any more chemo. She notes her last chemo was 3 to 5 months ago. They discussed a port for additional care, she reports she had considered a port to make blood draws easier but she does not want chemotherapy. Has not considered or discuss ed palliative care before. Notes if her cancer cannot be stopped her life prolonged, or the side effects of chemo no longer worth it she would consider symptomatic care options. She notes that chemo does not seem like that she has been left with bad neuropathy and her cancer is continued to spread anyway. Continues to have numbness and tingling in her hands and feet. Medical History: Reviewed Medications: Reviewed Surgical History: Reviewed Allergies: Reviewed Social History:Reviewed Code Status:DNR/DNI, confirmed with patient at bedside. Surrogate decision maker would be her daughter April Allergies Allergy/AdvReac Type Severity Reaction Status Date / Time Iodinated Contrast Media Allergy Severe CAN NOT Verified 09/06/22 15:49 BREATH adhesive Allergy Intermediate BLISTERS Verified 09/06/22 15:49 latex AdvReac Intermediate skin rash Verified 09/06/22 15:49 Home Medications Medication Instructions Recorded Confirmed Type apixaban 2.5 mg tablet (Eliquis) 2.5 mg PO BID 07/05/22 09/06/22 History fulvestrant 250 mg/5 mL 500 mg IM Q14D 07/05/22 09/06/22 History intramuscular syringe (Faslodex) loratadine 10 mg tablet (Claritin) 10 mg PO DAILY 07/05/22 09/06/22 History metoprolol succinate 25 mg 25 mg PO DAILY 07/05/22 09/06/22 History tablet,extended release 24 hr prednisone 5 mg tablet 5 mg PO DAILY 07/05/22 09/06/22 History spironolactone 50 mg tablet 50 mg PO DAILY 07/05/22 09/06/22 History Bacillus coagulans 1 billion cell 1 cell PO DAILY 09/06/22 09/06/22 History capsule pembrolizumab 25 mg/mL intravenous 0 mg IV DIRECTED 09/06/22 09/06/22 History solution (Keytruda) Past Med/Surg History Medical History (Updated 09/06/22 @ 16:45 by Rasta Ryan MD) 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 Cataracts, bilateral Fibromyalgia oral chemo meds- in legs, hands mostly History of bone cancer ankles and wrist History of breast cancer left side Hypertension Liver cancer 1 1/2 yrs ago dx- has had 6 mos chemo- now to be bx to dx which kind of cancer for further treatment Sensorineural hearing loss of both ears Poorer WRS in right ear Surgical History History of appendectomy History of cataract surgery bilateral eyes History of colon surgery precancerous mass removal History of mandibular surgery titanium plate with screws lower jaw due to brittle bone History of modified radical mastectomy of both breasts Family History Mother Allergies Other Colorectal cancer Esophageal cancer Lung cancer No family history of adverse response to anesthesia No family history of bleeding disorder Social History Smoking Status: Never smoker Hx Alcohol Use: Yes (thai only- 1 drink) Hx Substance Use: No Preferred Language: Macanese Beliefs That Will Affect Care: None Current Living Situation: Alone Feels Safe at Home: Yes Assistive Devices: None and Cane Review of Systems Review of Systems: All systems reviewed & are unremarkable except as noted in Subjective Physical Exam Physical Exam: General: Cachectic bu tnontoxic. NAD. HEENT: Atraumatic, normocephalic. Vision/hearing grossly intact, QUINAULT. Pulm: CTAB A&P. -wheezes, -rales, -rhonchi. Symmetrical chest rise. No increased work of breathing. No respiratory distress. Cardiac: RRR, -mrg. Radial pulses intact and symmetrical. Abdominal: Nontender, nondistended, soft. BS present. Ext: diminished but intact sensaation in hands and feet bilat. Results & Data Results & Data ([facility]) Vital Signs (Past 12 Hours) Vital Signs Temp Pulse Resp BP Pulse Ox O2 Del Method 09/06/22 14:15 97 Room Air 09/06/22 13:22 36.4 C L 76 18 129/60 95 Room Air PG Care Time/CCT Total # of Minutes Spent Total Time Spent with Patient: Total time spent is greater than 50% in coordination of care (as documented) at patient's floor/unit and/or counseling patient: Coding Level of Care Code INT OBSERVATION CARE 50M LVL 2 Diagnoses Weakness R53.1
[2022-09-06] MEDS ORDERED: PANTOprazole 40 MG TAB PO STA (16:50)
[2022-09-06 16:59] LABS: Appearance Urine Cloudy (Clear); Bacteria Urine Automated Negative (Negative); Bilirubin Urine Negative (Negative); Blood Urine Negative (Negative); Color Urine Yellow; Epithelial Cell Urine Auto >30 /lpf (0-5); Glucose Urine UA Negative (Negative); Ketones Urine Negative (Negative); Leukocyte Esterase Urine 2+ (Negative); Nitrite Urine Negative (Negative); Protein Urine Negative (Negative); RBC Urine Automated 0-4 /hpf (0-4); Specific Gravity Urine 1.009 (1.000-1.030); Urobilinogen Urine Negative (Negative)
[2022-09-06] MEDS ORDERED: cefTRIAXone SODIUM 2,000 MG/70 ML BAG IV STA (17:09)
[2022-09-06] MEDS ORDERED: PANTOprazole 40 MG in SYRINGE 0 ML IV ONE (17:15)
[2022-09-06] MEDS ORDERED: ACETAMINOPHEN 325 MG TAB PO PRN (19:10)
[2022-09-06] MEDS: APIXABAN 2.5 MG TAB PO SCH (21:42)
[2022-09-06] MEDS: FAMOTIDINE 20 MG in SYRINGE 3 ML IV SCH (21:42)
[2022-09-06] MEDS: NSS + 20MEQ KCL 20 MEQ/1,000 ML BAG IV SCH (21:43)
[2022-09-07] MEDS: APIXABAN 2.5 MG TAB PO SCH ×2 (08:33→20:17)
[2022-09-07] MEDS: METOPROLOL SUCC 25MG EXT REL TAB PO SCH (08:33)
[2022-09-07] MEDS: predniSONE 5 MG TAB PO SCH (08:33)
[2022-09-07] MEDS: SPIRONOLACTONE 25 MG TAB PO SCH (08:34)
[2022-09-07] MEDS: FAMOTIDINE 20 MG in SYRINGE 3 ML IV SCH ×2 (08:39→20:17)
[2022-09-07 08:52] LABS: Basophils # (auto) 0.04 K/uL (0-0.2); Basophils % (auto) 0.3 %; Eosinophils # (auto) 0.04 K/uL (0-0.50); Eosinophils % (auto) 0.3 %; Hematocrit (blood only) 33.3 % (34.1-44.9); Hemoglobin 11.2 g/dl (12.0-16.0); Lymphocytes # (auto) 3.22 K/uL (1.2-3.4); Mean Corpuscular Hemoglobin 29.1 pg (25.0-34.0); Mean Corpuscular Hgb Conc 33.6 g/dL (32.0-36.0); Mean Corpuscular Volume 86.5 fL (80.0-100.0); Mean Platelet Volume 10.4 fL (9.4-12.3); Monocytes # (auto) 1.92 K/uL (0.24-0.82); Monocytes % (auto) 12.5 %; Neutrophils # (auto) 9.79 K/uL (1.4-6.5); Neutrophils % (auto) 63.9 %; Nucleated RBC # (auto) 0.02 K/uL (0-0); Nucleated RBC % (auto) 0.1 %; Platelet Count 274 K/uL (130-400); RDW Coefficient of Variation 20.7 % (11.5-14.5); RDW Standard Deviation 50.3 fL (36.4-46.3); Red Blood Count 3.85 M/uL (3.93-5.22); White Blood Count 15.31 K/ul (4.8-10.8)
[2022-09-07] MEDS ORDERED: PANTOprazole 40 MG TAB PO SCH (09:00)
[2022-09-07 09:21] LABS: BUN Creatinine Ratio 22.6 (10-20); Calcium 7.9 mg/dl (8.5-10.1); Creatinine Clr Calc Pharmacy 35.7 ml/min; Est GFR (African American) 47.8 ml/min; Est GFR (Non-African American) 41.3 ml/min; Potassium 3.7 mmol/L (3.5-5.1)
--- NOTE | 2022-09-07 09:48 | Hospitalist Progress Note ---
Date of Service September 07, 2022 Assessment & Plan (1) Weakness: Plan: 81 yo F with PMH metastatic breast cancer to liver on chemotherapy referred here by oncologist for progressive weakness, ambulatory dysfunction over the past few years with acute worsening over past months. Metastatic breast cancer to liver -Extensive history of cancer with prolonged chemotherapy regimen in past -Pt does not seem interested in further treatment for several reasons and would like to shift toward symptom management -Will have goals of care discussion with patient to aid in disposition planning- may consider palliative care referral Acute on chronic progressive weakness Multifactorial, suspect 2/2 poor PO intake + metastatic cancer progression UA does not suggest urinalysis, pt not reporting urinary symptoms. 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 d/w dr steinberg. input appreciated vitals ntoed nad heent nc at mmm breathing unlabored no accessory muscles good effort skin no pallor or icterus weakness/metastatic cancer - PT/OT - ?rehab. appreciate palliative input Subjective No acute events overnight. Pt reports feeling well especially after bowel movement overnight. Denies any acute complaints. Does state she would like to avoid chemotherapy going forward and wants to shift her cancer care goals to symptom management/palliation. Review of Systems Review of Systems: Per subjective Physical Exam Physical Exam: General: Cachectic bu nontoxic. NAD. HEENT: Atraumatic, normocephalic. Vision/hearing grossly intact. Pulm: CTAB, -wheezes, -rales, -rhonchi. Symmetrical chest rise. No increased work of breathing. No respiratory distress. Cardiac: RRR, -mrg. Radial pulses intact and symmetrical. Abdominal: Nontender, nondistended, soft. BS present. Ext: diminished but intact sensation in hands and feet bilateral Resident Activity Tracking Resident Involvement: Resident Care Provided Care Provided: Adult [facility]
[2022-09-07] MEDS: NSS + 20MEQ KCL 20 MEQ/1,000 ML BAG IV SCH (09:52)
[2022-09-07 09:59] LABS: Echinocytes 1+; Polychromasia 1+
[2022-09-07] MEDS: PANTOprazole 40 MG in SYRINGE 0 ML IV SCH (10:11)
[2022-09-07] MEDS ORDERED: POLYETHYLENE (MIRALAX) 17 GM PACK PO ONE (11:28)
--- NOTE | 2022-09-07 13:16 | Palliative Care Consultation ---
Date of Consultation September 07, 2022 Assessment & Plan (1) Weakness: We talked about possible stay at SNF for rehab when ready for discharge, as she lives alone. She told me that she would like to think about that and discuss it with her daughter, April. We also talked about what she would do if she were to o ill to be home alone. She told me that April had offered to have her move in with her and her . Chan does not want to interfere with April's life and would prefer to be in SNF if she is unable to live independently. (2) Constipation by delayed colonic transit: With decreased mobility and po intake. Ordered miralax x 1 today, then prn. She did better with getting up to commode rather than bedpan. (3) Palliative care encounter: I talked with Chan about how she is coping with her illness. She approaches this in a very pragmatic way. She tells me that [place] and knows that is part of life. She has very strong mitali and is attended tenriism regularly until she was not able. When I asked her what bothers her most about her illness, she told me that it was not being able to go to tenriism. She denies fears or worries about her dying time. She tells me that April would be her surrogate decision maker and they have discussed what she would want for her care and her arrangements. She is DNR and tells me that she would just want to be able to peacefully. I asked her about previous statement that she was not interested in further chemotherapy. She tells me that is true. She does not see her current treatment with keytruda as chemotherapy. She has been tolerating it well. We talked about what she would think if she were no longer benefitting from the treatment. "then I'm terminal, just let me go". I offered to call her daughter but she asked me not to as April is busy helping a family member whose last week. Discussed with Dr. Morse. History of Present Illness Reason for Consultation: goals of care Requesting Physician: Dr. Pineda Attending Physician: Denny Morse DO History of Present Illness 81 yo lady who was diagnosed with breast cancer in 2003. She is followed by Dr. Stovall. She initially had bilateral total mastectomy with radiation therapy and has had multiple medical treatments over the years. She was found to have bony metastasis in 2013 and subsequently found to have liver metastasis as well. Despite treatment, she has had disease progression. She has had progressive weakness at home. She lives alone and has support from her daughter, April, who lives nearby. Chan reports that she had been able to get around with a walker at home and had meals provided for her by meals on wheels or her daughter. At this time, she requires a 1-2 person assist to transfer to bedside commode. She denies pain, anxiety, shortness of breath. She has had constipation but did have a bowel movement this morning. She does not appear to be on any bowel regimen. She reports that she has an appetite but has been eating very little. Allergies Allergy/AdvReac Type Severity Reaction Status Date / Time Iodinated Contrast Media Allergy Severe CAN NOT Verified 09/06/22 15:49 BREATH adhesive Allergy Intermediate BLISTERS Verified 09/06/22 15:49 latex AdvReac Intermediate skin rash Verified 09/06/22 15:49 Home Medications Medication Instructions Recorded Confirmed Type apixaban 2.5 mg tablet (Eliquis) 2.5 mg PO BID 07/05/22 09/06/22 History fulvestrant 250 mg/5 mL 500 mg IM Q14D 07/05/22 09/06/22 History intramuscular syringe (Faslodex) loratadine 10 mg tablet (Claritin) 10 mg PO DAILY 07/05/22 09/06/22 History metoprolol succinate 25 mg 25 mg PO DAILY 07/05/22 09/06/22 History tablet,extended release 24 hr prednisone 5 mg tablet 5 mg PO DAILY 07/05/22 09/06/22 History spironolactone 50 mg tablet 50 mg PO DAILY 07/05/22 09/06/22 History Bacillus coagulans 1 billion cell 1 cell PO DAILY 09/06/22 09/06/22 History capsule pembrolizumab 25 mg/mL intravenous 0 mg IV DIRECTED 09/06/22 09/06/22 History solution (Keytruda) Patient History Medical History 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 Cataracts, bilateral Fibromyalgia oral chemo meds- in legs, hands mostly History of bone cancer ankles and wrist History of breast cancer left side Hypertension Liver cancer 1 1/2 yrs ago dx- has had 6 mos chemo- now to be bx to dx which kind of cancer for further treatment Sensorineural hearing loss of both ears Poorer WRS in right ear Surgical History History of appendectomy History of cataract surgery bilateral eyes History of colon surgery precancerous mass removal History of mandibular surgery titanium plate with screws lower jaw due to brittle bone History of modified radical mastectomy of both breasts Family History Mother Allergies Other Colorectal cancer Esophageal cancer Lung cancer No family history of adverse response to anesthesia No family history of bleeding disorder Social History Smoking Status: Never smoker Hx Alcohol Use: Yes (thai only- 1 drink) Hx Substance Use: No Preferred Language: Thai Communication Ability: Effective Beliefs That Will Affect Care: None marital status: / Current Living Situation: Alone How many Children do You have: 1 Feels Safe at Home: Yes Assistive Devices: Walker Review of Systems Review of Systems: ESAS Pain 0/3 Dyspnea 0/3 Fatigue 2/3 Nausea 0/3 Anxiety 0/3 Drowsiness0/3 PPS 40% Physical Exam Constitutional: + ill appearing; no acute distress Eyes: mild scleral icterus ENMT: Mouth: oral mucous membranes not dry Respiratory: normal respiratory effort; no labored breathing Cardiovascular: Rate/Rhythm: regular rate and regular rhythm Gastrointestinal (Abdomen): distended, firm Musculoskeletal: LE pitting edema Neurologic: Speech / Cognition: normal cognition Results & Data ([facility]) Vital Signs (Past 12 Hours) Vital Signs Temp Pulse Resp BP Pulse Ox O2 Del Method 09/07/22 07:40 Room Air 09/07/22 07:40 97.7 F 83 16 102/65 98 Room Air PG Care Time/CCT Total # of Minutes Spent Total Time Spent: 60 Total Time Spent with Patient: Total time spent is greater than 50% in coordination of care (as documented) at patient's floor/unit and/or counseling patient: goals of care, surrogate decision maker, code status, patient education and support. Coding Level of Care Code 97955 Initial Inpt Care Lvl 2 Diagnoses Weakness R53.1 Constipation by delayed colonic transit K59.01 Palliative care encounter Z51.5
--- NOTE | 2022-09-07 19:06 | Billing Data ---
Date of Service September 07, 2022 Coding Level of Care Code 43170 Subseq Obs Care Lvl 3
[2022-09-08 07:02] LABS: Hematocrit (blood only) 36.3 % (34.1-44.9); Hemoglobin 12.3 g/dl (12.0-16.0); Mean Corpuscular Hemoglobin 29.8 pg (25.0-34.0); Mean Corpuscular Hgb Conc 33.9 g/dL (32.0-36.0); Mean Corpuscular Volume 87.9 fL (80.0-100.0); Mean Platelet Volume 10.4 fL (9.4-12.3); Nucleated RBC # (auto) 0.02 K/uL (0-0); Nucleated RBC % (auto) 0.1 %; Platelet Count 286 K/uL (130-400); RDW Coefficient of Variation 21.3 % (11.5-14.5); RDW Standard Deviation 52.9 fL (36.4-46.3); Red Blood Count 4.13 M/uL (3.93-5.22); White Blood Count 16.27 K/ul (4.8-10.8)
[2022-09-08 07:23] LABS: BUN Creatinine Ratio 20.9 (10-20); Calcium 8.6 mg/dl (8.5-10.1); Creatinine Clr Calc Pharmacy 38.4 ml/min; Est GFR (African American) 52.4 ml/min; Est GFR (Non-African American) 45.2 ml/min; Potassium 4.2 mmol/L (3.5-5.1)
[2022-09-08] MEDS: APIXABAN 2.5 MG TAB PO SCH ×2 (09:17→20:36)
[2022-09-08] MEDS: METOPROLOL SUCC 25MG EXT REL TAB PO SCH (09:17)
[2022-09-08] MEDS: SPIRONOLACTONE 25 MG TAB PO SCH (09:17)
[2022-09-08] MEDS: FAMOTIDINE 20 MG in SYRINGE 3 ML IV SCH ×2 (09:17→20:37)
[2022-09-08] MEDS: PANTOprazole 40 MG in SYRINGE 0 ML IV SCH (11:19)
[2022-09-08] MEDS: predniSONE 5 MG TAB PO SCH (11:19)
[2022-09-08] MEDS: POLYETHYLENE (MIRALAX) 17 GM PACK PO SCH ×2 (12:02→20:38)
--- NOTE | 2022-09-08 12:52 | Hospitalist Progress Note ---
Date of Service September 08, 2022 Assessment & Plan (1) Weakness: Plan: 81 yo F with PMH metastatic breast cancer to liver on chemotherapy referred here by oncologist for progressive weakness, ambulatory dysfunction over the past few years with acute worsening over past months. Metastatic breast cancer to liver -Extensive history of cancer with prolonged chemotherapy regimen in past -Pt does not seem interested in further treatment for several reasons and would like to shift toward symptom management -There is a known history of cirrhosis requiring paracentesis in the past. Pt's outpatient oncologist did suggest potential repeat therapeutic paracentesis as inpatient though will defer at present since she does not complain of any abdominal pain/distension -Disposition planning currently awaiting pt deliberation on her goals of care Acute on chronic progressive weakness Multifactorial, suspect 2/2 poor PO intake + metastatic cancer progression UA does not suggest urinalysis, pt not reporting urinary symptoms. 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 Better with glasses, but not perfect. Better up close force further away. Oncologist called me asking to possibly pursue paracentesis. Discussing with patient about symptomsshe really has no abdominal pain no distention related painshe does note she has distention but it really only bothers her when she sitting up and leaning forwardand at this it only really is a fullness not really a pain. She does not feel it impacts her breathing at all. Later revisited with her daughter who reiterates all of the same negative symptoms and only the marginally positive symptom of feeling a bit of fullness whenever she sits up to lean forward. Extensively discussed risk and benefit of paracentesis for malignant effusion, high potential of reaccumulation, low potential for benefit given essentially minimal symptoms. Discussed the role of when it could be helpful given that she may progress to this, but discussed that in my opinion she does not appear to meet criteria for benefit at this point in time. vitals noted nad heent nc at mmm breathing unlabored no accessory muscles good effort skin no pallor or icterus abdomen moderately distended with fluid wave but nontender, skin is not tense. Subjectively vision is better up close and far away. weakness/metastatic cancer -discussed with palliative yesterday. Extensive discussion with patient and daughter todayreally their goals are very clearshe would like to continue Keytruda as long as it seems to not be causing her harm, and if it is potentially helping. She would definitely like to refrain from any further chemotherapy type of an intervention, she would like to get home if at all possiblebut at this point in time is too weak to be safe at home and would like to pursue rehabmost likely SNF level at this time. Agree with her/daughters plan wholeheartedly, continue current care. Leukocytosis nonspecificsuspect demargination related to her overall situation, and/or prednisone usecontinue to follow her clinically but no overt signs or symptoms of infection at this time. will add CRP and procalcitonin to AM labs Subjective No acute events overnight. Pt states she is upset by her situation and is unsure what she wants to do in regard to going home or to rehab. She stated she would like a day to just settle down and think about everything. Denies any somatic complaints, including abdominal pain or distension. Review of Systems Review of Systems: Per subjective Physical Exam Physical Exam: General: Cachectic but nontoxic. NAD. HEENT: Atraumatic, normocephalic. Vision/hearing grossly intact. Pulm: CTAB, -wheezes, -rales, -rhonchi. Symmetrical chest rise. No increased work of breathing. No respiratory distress. Cardiac: RRR, -mrg. Radial pulses intact and symmetrical. Abdominal: Nontender, nondistended, soft. BS present. Ext: diminished but intact sensation in hands and feet bilateral Results & Data Results & Data ([facility]) Vital Signs (Past 12 Hours) Vital Signs Temp Pulse Resp BP Pulse Ox O2 Del Method 09/08/22 07:43 36.7 C 80 18 114/73 98 Room Air Resident Activity Tracking Resident Involvement: Resident Care Provided Care Provided: Adult Hospital Medicine
--- NOTE | 2022-09-08 18:12 | Billing Data ---
Date of Service September 08, 2022 Coding Level of Care Code 68310 Subseq Hosp Care Lvl 3
[2022-09-09 08:16] LABS: Basophils # (auto) 0.07 K/uL (0-0.2); Basophils % (auto) 0.4 %; Eosinophils # (auto) 0.15 K/uL (0-0.50); Eosinophils % (auto) 0.9 %; Hematocrit (blood only) 34.3 % (34.1-44.9); Hemoglobin 11.8 g/dl (12.0-16.0); Immature Granulocytes % (auto) 2.4 %; Lymphocytes # (auto) 3.52 K/uL (1.2-3.4); Lymphocytes % (auto) 20.8 %; Mean Corpuscular Hemoglobin 29.7 pg (25.0-34.0); Mean Corpuscular Hgb Conc 34.4 g/dL (32.0-36.0); Mean Corpuscular Volume 86.4 fL (80.0-100.0); Mean Platelet Volume 10.3 fL (9.4-12.3); Monocytes % (auto) 12.4 %; Neutrophils # (auto) 10.68 K/uL (1.4-6.5); Neutrophils % (auto) 63.1 %; Nucleated RBC # (auto) 0.02 K/uL (0-0); Nucleated RBC % (auto) 0.1 %; Platelet Count 254 K/uL (130-400); RDW Coefficient of Variation 21.7 % (11.5-14.5); RDW Standard Deviation 53.3 fL (36.4-46.3); Red Blood Count 3.97 M/uL (3.93-5.22); White Blood Count 16.92 K/ul (4.8-10.8)
[2022-09-09 08:37] LABS: Anisocytosis Present; Poikilocytosis Present
[2022-09-09] MEDS: SPIRONOLACTONE 25 MG TAB PO SCH (09:11)
[2022-09-09] MEDS: APIXABAN 2.5 MG TAB PO SCH ×2 (09:11→20:28)
[2022-09-09] MEDS: POLYETHYLENE (MIRALAX) 17 GM PACK PO SCH ×2 (09:11→20:28)
[2022-09-09] MEDS: predniSONE 5 MG TAB PO SCH (09:11)
[2022-09-09] MEDS: FAMOTIDINE 20 MG in SYRINGE 3 ML IV SCH ×2 (09:12→20:28)
[2022-09-09] MEDS: METOPROLOL SUCC 25MG EXT REL TAB PO SCH (09:12)
--- NOTE | 2022-09-09 10:48 | Hospitalist Progress Note ---
Date of Service September 09, 2022 Assessment & Plan (1) Weakness: Plan: 81 yo F with PMH metastatic breast cancer to liver on chemotherapy referred here by oncologist for progressive weakness, ambulatory dysfunction over the past few years with acute worsening over past months. Metastatic breast cancer to liver -Extensive history of cancer with prolonged chemotherapy regimen in past -Pt does not seem interested in further treatment (aside from Keytruda as she has not reported side effects) for several reasons and would like to shift toward symptom management -There is a known history of cirrhosis requiring paracentesis in the past. Pt's outpatient oncologist did suggest potential repeat therapeutic paracentesis as inpatient though will defer at present since she does not complain of any abdominal pain/distension -CRP 6.6 today, WBC 16.3 to 17.9 -Pt remains hemodynamically stable without any concern for infection at this time Acute on chronic progressive weakness Multifactorial, suspect 2/2 poor PO intake + metastatic cancer progression UA does not suggest urinalysis, pt not reporting urinary symptoms. 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 vitals noted nad at rest heent nc at mmm breathing unlabored no accessory muscles good spontaneous effort no tachypnea/retractions/accessory muscles. skin no pallor or icterus weakness/metastatic cancer -discussed with palliative yesterday. Extensive discussion with patient and daughter todayreally their goals are very clearshe would like to continue Keytruda as long as it seems to not be causing her harm, and if it is potentially helping. She would definitely like to refrain from any further chemotherapy type of an intervention, she would like to get home if at all possiblebut at this point in time is too weak to be safe at home and would like to pursue rehabfor SNF/rehab with goal of home Subjective No acute events overnight. Pt feels well today, states nothing is bothering her. Would like pure wick catheter as this did help her yesterday. Still eager to go to rehab to recover her strength. Denies any fever, chills, abdominal pain/distension, nausea/vomiting Review of Systems Review of Systems: Per subjective Physical Exam Physical Exam: General: No acute distress, frail HEENT: Atraumatic, normocephalic. Vision/hearing grossly intact. Pulm: CTAB, -wheezes, -rales, -rhonchi. Symmetrical chest rise. No increased work of breathing. No respiratory distress. Cardiac: RRR, -mrg. Radial pulses intact and symmetrical. Abdominal: Nontender, nondistended, soft, +mild fluid wave without rebound or guarding, no skin change Ext: diminished but intact sensation in hands and feet bilaterally Results & Data Results & Data ([facility]) Vital Signs (Past 12 Hours) Vital Signs Temp Pulse Resp BP Pulse Ox O2 Del Method 09/09/22 07:41 36.6 C 73 16 108/68 97 Room Air Resident Activity Tracking Resident Involvement: Resident Care Provided Care Provided: Adult Hospital Medicine
[2022-09-09] MEDS: PANTOprazole 40 MG in SYRINGE 0 ML IV SCH (11:14)
--- NOTE | 2022-09-09 16:36 | Billing Data ---
Date of Service September 09, 2022 Coding Level of Care Code 98672 Subseq Hosp Care Lvl 1
[2022-09-10 07:31] LABS: Hematocrit (blood only) 35.2 % (34.1-44.9); Hemoglobin 11.8 g/dl (12.0-16.0); Mean Corpuscular Hemoglobin 29.6 pg (25.0-34.0); Mean Corpuscular Hgb Conc 33.5 g/dL (32.0-36.0); Mean Corpuscular Volume 88.4 fL (80.0-100.0); Mean Platelet Volume 10.3 fL (9.4-12.3); Platelet Count 251 K/uL (130-400); RDW Coefficient of Variation 22.4 % (11.5-14.5); Red Blood Count 3.98 M/uL (3.93-5.22)
[2022-09-10] MEDS: predniSONE 5 MG TAB PO SCH (07:32)
[2022-09-10] MEDS: FAMOTIDINE 20 MG in SYRINGE 3 ML IV SCH (07:32)
[2022-09-10] MEDS: POLYETHYLENE (MIRALAX) 17 GM PACK PO SCH ×2 (07:33→20:23)
[2022-09-10] MEDS: APIXABAN 2.5 MG TAB PO SCH ×2 (07:33→20:24)
[2022-09-10] MEDS: SPIRONOLACTONE 25 MG TAB PO SCH (07:33)
[2022-09-10] MEDS: METOPROLOL SUCC 25MG EXT REL TAB PO SCH (07:33)
[2022-09-10 07:48] LABS: Calcium 8.7 mg/dl (8.5-10.1); Creatinine Clr Calc Pharmacy 42.1 ml/min; Est GFR (African American) 58.5 ml/min; Est GFR (Non-African American) 50.5 ml/min; Potassium 4.5 mmol/L (3.5-5.1)
--- NOTE | 2022-09-10 09:31 | Hospitalist Progress Note ---
Date of Service September 10, 2022 Assessment & Plan (1) Weakness: Plan: 81 yo F with PMH metastatic breast cancer to liver on chemotherapy referred here by oncologist for progressive weakness, ambulatory dysfunction over the past few years with acute worsening over past months. Metastatic breast cancer to liver -Extensive history of cancer with prolonged chemotherapy regimen in past -Pt does not seem interested in further treatment (aside from Keytruda as she has not reported side effects) for several reasons and would like to shift toward symptom management -There is a known history of cirrhosis requiring paracentesis in the past. Pt's outpatient oncologist did suggest potential repeat therapeutic paracentesis as inpatient though will defer at present since she does not complain of any abdominal pain/distension -WBC 17.9 to 15.9 today -Pt remains hemodynamically stable without any concern for infection at this time -Goal appears to be palliative treatment once pt returns home from her likely rehab/SNF stay Acute on chronic progressive weakness Multifactorial, suspect 2/2 poor PO intake + metastatic cancer progression UA does not suggest urinalysis, pt not reporting urinary symptoms. 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 - Pureed diet Hypertension Continue spironolactone, metoprolol - BP stable DVT without PE - DVT 6 months prior - Continue Eliquis DVT PPX: Eliquis CODE: DNR/DNI Dispo: Medical/surgical Diet: Regular Admission and Anticipated Discharge Date Admission Date: September 08, 2022 Supervising Physician Co-Signing Physician Notes I personally examined the patient and verified all christiansen points of history and exam, discussed case, and agree with decision making with Dr Longo covered head to toe in blankets sitting in chair vitals noted nad at rest heent nc at mmm breathing unlabored weakness/metastatic cancer -discussed with palliative earlier in hospital stay. Extensive discussion with patient and daughter a few days ago as wellreally their goals are very clearshe would like to continue Keytruda as long as it seems to not be causing her harm, and if it is potentially helping. She would definitely like to refrain from any further chemotherapy type of an inte rvention, she would like to get home if at all possiblebut at this point in time is too weak to be safe at home and would like to pursue rehabfor SNF/rehab with goal of home -As it relates to her malignant ascitesher oncologist then called wondering if she would benefit from a paracentesis. But given the patient has no signs or symptoms of SBP, no pain, no impingement on breathing etc., after careful discussion with patient and daughter, I do not see what benefit she would get from this at this time. Discussed that should pain, discomfort, impingement on breathing InSu then definitely paracentesis could be pursued quickly. Subjective No acute events overnight. Pt denies any acute complaints. Keeps insisting she does not want to be a burden to the staff and was reassured regarding this. Denies fever, chills, abdominal pain/distension, constipation, N/V. Review of Systems Review of Systems: Per subjective Physical Exam Physical Exam: General: No acute distress, frail HEENT: Atraumatic, normocephalic. Vision/hearing grossly intact. Pulm: CTAB, -wheezes, -rales, -rhonchi. Symmetrical chest rise. No increased work of breathing. No respiratory distress. Cardiac: RRR, -mrg. Radial pulses intact and symmetrical. Abdominal: Nontender, nondistended, soft, no rebound or guarding, no skin change Ext: diminished but intact sensation in hands and feet bilaterally, mild non- pitting edema of R foot Results & Data Results & Data ([facility]) Vital Signs (Past 12 Hours) Vital Signs Temp Pulse Resp BP BP Pulse Ox O2 Del Method 09/10/22 07:38 36.4 C L 70 16 112/51 L 99 Room Air 09/09/22 21:54 36.6 C 73 16 115/68 95 Room Air Resident Activity Tracking Resident Involvement: Resident Care Provided Care Provided: Adult Hospital Medicine
--- NOTE | 2022-09-10 16:25 | Billing Data ---
Date of Service September 10, 2022 Coding Level of Care Code 71259 Subseq Hosp Care Lvl 1
--- NOTE | 2022-09-10 16:26 | Billing Data ---
Date of Service September 10, 2022 Coding Level of Care Code 73717 Subseq Hosp Care Lvl 1
[2022-09-10] MEDS: FAMOTIDINE 20 MG TAB PO SCH (20:23)
[2022-09-10] MEDS: PANTOprazole 40 MG TAB PO SCH (20:24)
[2022-09-10] MEDS: DOCUSATE SODIUM 100 MG CAP PO SCH (20:28)
[2022-09-11 07:25] LABS: Hematocrit (blood only) 34.5 % (34.1-44.9); Hemoglobin 11.9 g/dl (12.0-16.0); Mean Corpuscular Hgb Conc 34.5 g/dL (32.0-36.0); Mean Corpuscular Volume 86.9 fL (80.0-100.0); Mean Platelet Volume 10.1 fL (9.4-12.3); Platelet Count 276 K/uL (130-400); RDW Coefficient of Variation 22.5 % (11.5-14.5); RDW Standard Deviation 57.7 fL (36.4-46.3); Red Blood Count 3.97 M/uL (3.93-5.22); White Blood Count 15.11 K/ul (4.8-10.8)
[2022-09-11 07:43] LABS: BUN Creatinine Ratio 22.4 (10-20); Calcium 8.6 mg/dl (8.5-10.1); Creatinine Clr Calc Pharmacy 45.1 ml/min; Est GFR (African American) 63.6 ml/min; Est GFR (Non-African American) 54.9 ml/min; Potassium 4.4 mmol/L (3.5-5.1)
--- NOTE | 2022-09-11 08:37 | Hospitalist Progress Note ---
Date of Service September 11, 2022 Assessment & Plan (1) Weakness: Plan: 81 yo F with PMH metastatic breast cancer to liver on chemotherapy referred here by oncologist for progressive weakness, ambulatory dysfunction over the past few years with acute worsening over past few months. Metastatic breast cancer to liver -Extensive history of cancer with prolonged chemotherapy regimen in past -Pt does not seem interested in further treatment (aside from Keytruda as she has not reported side effects) for several reasons and would like to shift toward symptom management -There is a known history of cirrhosis requiring paracentesis in the past. Pt's outpatient oncologist did suggest potential repeat therapeutic paracentesis as inpatient though will defer at present since she does not complain of any abdominal pain/distension -WBC 15.9 to 15.1 today -Pt remains hemodynamically stable without any concern for infection at this time -Goal appears to be palliative treatment once pt returns home from her likely rehab/SNF stay- discharged to rehab on 09/11 Acute hypervolemia -Noted with RLE edema- no JVD, clear lungs, no dyspnea/hypoxia. Differential includes venous stasis, fluid retention from cirrhotic liver disease -Encourage continued ambulation/movement -Consider Lasix -Please continue to monitor fluid status and need for diuresis (home regimen includes spironolactone 50 mg daily) Hyponatremia -Na 132 today -Suspect contribution from SIADH 2/2 malignancy though also dilutional component from hypervolemia 2/2 liver cirrhosis -Please continue to trend BMP Acute on chronic progressive weakness Multifactorial, suspect 2/2 poor PO intake + metastatic cancer progression UA does not suggest urinalysis, pt not reporting urinary symptoms. 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 Pt states her R leg swelling is not as bothersome yesterday and is still moving her feet around while sitting. Denies any fever, chills, abdominal distension/pain, nausea/vomiting, dyspnea. Did have 2 BMs yesterday and reports relief of bloating afterward. Review of Systems Review of Systems: Per subjective Physical Exam Physical Exam: General: No acute distress, frail HEENT: Atraumatic, normocephalic. No JVD Pulm: CTAB, -wheezes, -rales, -rhonchi. Symmetrical chest rise. No increased work of breathing. No respiratory distress. Cardiac: RRR, normal S1 and S2, no murmurs. Radial pulses intact and symmetrical. Abdominal: Nontender, nondistended, soft, no rebound or guarding, no skin changes Ext: diminished but intact sensation in hands and feet bilaterally, +1 edema of b/l feet worse on R > L- slightly improved from day prior, less tender to palpation, no warmth Results & Data Results & Data ([facility]) Vital Signs (Past 12 Hours) Vital Signs Temp Pulse Resp BP BP Pulse Ox O2 Del Method 09/11/22 07:35 36.6 C 76 16 108/72 98 Room Air 09/10/22 21:12 36.8 C 77 16 117/75 97 Room Air Resident Activity Tracking Resident Involvement: Resident Care Provided Care Provided: Adult Hospital Medicine
[2022-09-11] MEDS: APIXABAN 2.5 MG TAB PO SCH (09:22)
[2022-09-11] MEDS: FAMOTIDINE 20 MG TAB PO SCH (09:23)
[2022-09-11] MEDS: PANTOprazole 40 MG TAB PO SCH (09:23)
[2022-09-11] MEDS: METOPROLOL SUCC 25MG EXT REL TAB PO SCH (09:24)
[2022-09-11] MEDS: predniSONE 5 MG TAB PO SCH (09:24)
[2022-09-11] MEDS: SPIRONOLACTONE 25 MG TAB PO SCH (09:25)
[2022-09-11] MEDS: POLYETHYLENE (MIRALAX) 17 GM PACK PO SCH (09:25)
[2022-09-11] MEDS: DOCUSATE SODIUM 100 MG CAP PO SCH (09:27)
--- NOTE | 2022-09-11 11:23 | Discharge Summary ---
Date of Service September 11, 2022 Admission HPI Per Admitting Provider Chan is a 81 -year-old female with a history of breast cancer with metastasis to the liver who presents from [place] on the recommendation of her oncologist for progressive weakness. No chest pain, chest pressure, shortness of breath, lightheadedness, dizziness, fever, chills, sweats. Endorses progressive weakness and difficulty ambulating. Symptoms have been progressive for several years, but are acutely worsening and associated with lower extremity increasing weakness. On admission has a leukocytosis to 18 in the setting of prednisone use, acutely elevated creatinine from a normal baseline up to 1.28, mild chronic transaminitis, and a high-sensitivity troponin of 24.9. COVID testing is negative Patient seen at the bedside. Reports that she has felt progressively weak for couple of months, but suddenly felt much more weak today. She has had difficulty peeing for about 2 days, but is not having any dysuria. No fever, chills, sweats. Just is feeling so weak that she tried to get up to pee and started to slump to the ground. Denies any recent falls, has not lost consciousness or hit her head. Reports she is undergone a great deal of chemotherapy, and Emily does not want any more chemo. She notes her last chemo was 3 to 5 months ago. They discussed a port for additional care, she reports she had considered a port to make blood draws easier but she does not want chemotherapy. Has not considered or discussed palliative care before. Notes if her cancer cannot be stopped her life prolonged, or the side effects of chemo no longer worth it she would consider symptomatic care options. She notes that chemo does not seem like that she has been left with bad neuropathy and her cancer is continued to spread anyway. Continues to have numbness and tingling in her hands and feet. Medical History: Reviewed Medications: Reviewed Surgical History: Reviewed Allergies: Reviewed Social History:Reviewed Code Status:DNR/DNI, confirmed with patient at bedside. Surrogate decision make r would be her daughter April Admission Exam Per Admitting Provider General: Cachectic bu tnontoxic. NAD. HEENT: Atraumatic, normocephalic. Vision/hearing grossly intact, [place]. Pulm: CTAB A&P. -wheezes, -rales, -rhonchi. Symmetrical chest rise. No increased work of breathing. No respiratory distress. Cardiac: RRR, -mrg. Radial pulses intact and symmetrical. Abdominal: Nontender, nondistended, soft. BS present. Ext: diminished but intact sensaation in hands and feet bilat. Principal Diagnosis Generalized weakness 2/2 metastatic breast cancer, hypervolemia, hyponatremia Discharge Exam General: No acute distress, frail HEENT: Atraumatic, normocephalic. No JVD Pulm: CTAB, -wheezes, -rales, -rhonchi. Symmetrical chest rise. No increased work of breathing. No respiratory distress. Cardiac: RRR, normal S1 and S2, no murmurs. Radial pulses intact and symmetrical. Abdominal: Nontender, nondistended, soft, no rebound or guarding, no skin changes Ext: diminished but intact sensation in hands and feet bilaterally, +1 edema of b/l feet worse on R > L- slightly improved from day prior, less tender to palpation, no warmth Discharge Data Allergies Allergy/AdvReac Type Severity Reaction Status Date / Time Iodinated Contrast Media Allergy Severe CAN NOT Verified 09/06/22 15:49 BREATH adhesive Allergy Intermediate BLISTERS Verified 09/06/22 15:49 latex AdvReac Intermediate skin rash Verified 09/06/22 15:49 Consultations 09/06/22 15:52 ED Decision to Admit Stat 09/06/22 19:10 Consult Palliative Care Routine Hospital Course (1) Weakness: 81 yo F with PMH metastatic breast cancer to liver on chemotherapy referred here by oncologist for progressive weakness, ambulatory dysfunction over the past few years with acute worsening over past few months. Metastatic breast cancer to liver -Extensive history of cancer with prolonged chemotherapy regimen in past -Pt does not seem interested in further treatment (aside from Keytruda as she has not reported side effects) for several reasons and would like to shift toward symptom management -Goal appears to be palliative treatment once pt returns home from her likely rehab/SNF stay- discharged to rehab on 09/11 Cirrhosis -There is a known history of cirrhosis requiring paracentesis in the past. Pt's outpatient oncologist did suggest potential repeat therapeutic paracentesis as inpatient though deferred at present since she does not complain of any abdominal pain/distension -Pt remains hemodynamically stable without any concern for infection at this time Acute hypervolemia -Noted with RLE edema- no JVD, clear lungs, no dyspnea/hypoxia. Multifactorial - venous stasis, fluid retention from cirrhotic liver disease -Please continue to monitor fluid status and need for diuresis (home regimen includes spironolactone 50 mg daily) -Consider Lasix adding lasix if needed -Encourage continued ambulation/movement Hyponatremia -Na 132 today -Suspect contribution from SIADH 2/2 malignancy though also dilutional component from hypervolemia 2/2 liver cirrhosis -Please continue to trend BMP Acute on chronic progressive weakness Multifactorial, suspect 2/2 poor PO intake + metastatic cancer progression + cirrhosis with portal HTN 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 Hypertension Continue spironolactone, metoprolol - BP stable DVT without PE - DVT 6 months prior - Continue Eliquis in setting of current malignancy Total Time Total Time Spent Total Time Spent (In Minutes): 30 Discharge Plan Discharge Items Patient Disposition: Transfer Inpatient Rehab Fac Reason For Visit: WEAKNESS Discharge Diagnosis: Generalized weakness, metastatic breast cancer, hyponatremia Activity: Resume your previous activity Non-emergency contact: Primary Care Provider Call non-emergency contact if: you have any medication questions, your symptoms worsen, your pain is worsening and you have a fever Follow-up/Referrals: Janusz Ramos [Primary Care Provider] - () Diet: Regular Fluids: 1500ml (6 cups) Addtl Attending Provider Instructions: 81 yo F with PMH metastatic breast cancer to liver on chemotherapy referred here by oncologist for progressive weakness, ambulatory dysfunction over the past few years with acute worsening over past few months. Admitted 09/06 - 09/11 Metastatic breast cancer to liver -Extensive history of cancer with prolonged chemotherapy regimen in past -Pt does not seem interested in further treatment (aside from Keytruda as she thurston s not reported side effects) for several reasons and would like to shift toward symptom management -There is a known history of cirrhosis requiring paracentesis in the past. Pt's outpatient oncologist did suggest potential repeat therapeutic paracentesis as inpatient though will defer at present since she does not complain of any abdominal pain/distension -WBC 15.9 to 15.1 today -Pt remains hemodynamically stable without any concern for infection at this time -Goal appears to be palliative treatment once pt returns home from her likely rehab/SNF stay- discharged to rehab on 09/11 Acute hypervolemia -Noted with RLE edema- no JVD, clear lungs, no dyspnea/hypoxia. Differential includes venous stasis, fluid retention from cirrhotic liver disease -Encourage continued ambulation/movement -Consider Lasix -Please continue to monitor fluid status and need for diuresis (home regimen includes spironolactone 50 mg daily) Hyponatremia -Na 132 today -Suspect contribution from SIADH 2/2 malignancy though also dilutional component from hypervolemia 2/2 liver cirrhosis -Please continue to trend BMP Acute on chronic progressive weakness Multifactorial, suspect 2/2 poor PO intake + metastatic cancer progression UA does not suggest urinalysis, pt not reporting urinary symptoms. 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 - Pureed diet Hypertension Continue spironolactone, metoprolol - BP stable DVT without PE - DVT 6 months prior - Continue Eliquis Pending Studies at Discharge: No Stand-Alone Forms: My [facility] Skilled Items Patient informed of condition?: Yes DNR: Yes Discharge Level of Care: Acute rehab Communicable Disease: No Discharge Prognosis: Stable Lines: None Urinary Catheter: No Medications and DC Order Prescriptions: Continued metoprolol succinate 25 mg tablet extended release 24 hr 25 mg PO DAILY Rx Instructions: TAKES MEDS WITH CHOCOLATE MILK FOR EASE OF SWALLOWING spironolactone 50 mg tablet 50 mg PO DAILY Rx Instructions: TAKES MEDS WITH CHOCOLATE MILK FOR EASE OF SWALLOWING Eliquis 2.5 mg tablet 2.5 mg PO BID Rx Instructions: TAKES MEDS WITH CHOCOLATE MILK FOR EASE OF SWALLOWING prednisone 5 mg tablet 5 mg PO DAILY Rx Instructions: TAKES MEDS WITH CHOCOLATE MILK FOR EASE OF SWALLOWING loratadine [Claritin] 10 mg tablet 10 mg PO DAILY Rx Instructions: TAKES MEDS WITH CHOCOLATE MILK FOR EASE OF SWALLOWING fulvestrant [Faslodex] 250 mg/5 mL syringe 500 mg IM Q14D Rx Instructions: may divide dose into 2 equally divided injections; one into each buttock Bacillus coagulans 1 billion cell Capsule 1 cell PO DAILY Rx Instructions: TAKES MEDS WITH CHOCOLATE MILK FOR EASE OF SWALLOWING Keytruda 25 mg/mL Solution 0 mg IV DIRECTED Rx Instructions: FAMILY UNSURE OF DOSE. Discharge Orders: Discharge Order (Routine); Ordered 09/11/22 Ordered By: Emily Ferrara/Other Patient Handouts: What Is Palliative Care Admission Data Admit Date/Time: 09/08/22 12:23 Attending Provider: Juliana Willis Admit Provider: Rasta Ryan Primary Care Provider: Janusz Ramos Other Providers: Rasta Ryan ; Sharri Shafer ; Kay Castro ; Denny Morse Supervising Physician Co-Signing Physician Notes Resident Physician Supervision Note: I independently interviewed and examined the patient and verified the christiansen history and physical, reviewed labs and image studies and agree with resident findings and care plan.
== END 2022-09-11 15:31 | DRG 597 ==
LOC: EDINP 13:15 → ED 13:15 → SUATTDRO 17:01 → 3W 20:06 → SUATTDRO 09-08 12:23
DX: G62.2 Polyneuropathy due to other toxic agents; M79.7 Fibromyalgia; M87.180 Osteonecrosis due to drugs, jaw; Z86.718 Personal history of other venous thrombosis and embolism; C50.919 Malignant neoplasm of unspecified site of unspecified female breast; N39.0 Urinary tract infection, site not specified; E87.70 Fluid overload, unspecified; Z66 Do not resuscitate; E43 Unspecified severe protein-calorie malnutrition; N17.9 Acute kidney failure, unspecified; I10 Essential (primary) hypertension; I87.8 Other specified disorders of veins; R18.0 Malignant ascites; E87.1 Hypo-osmolality and hyponatremia; T45.1X5A Adverse effect of antineoplastic and immunosuppressive drugs, initial encounter; Y92.009 Unspecified place in unspecified non-institutional (private) residence as the place of occurrence of the external cause; K59.01 Slow transit constipation; K74.60 Unspecified cirrhosis of liver; Z79.01 Long term (current) use of anticoagulants; C78.7 Secondary malignant neoplasm of liver and intrahepatic bile duct